=== PATIENT | female | born 1975 | race African-American/Black ===

== ENCOUNTER → 2017-03-11 | Outpatient (CLI) | payer OTHER ==
[~2017-03-11] VITALS: Ht 154.9 cm; Wt 57.3 kg
[~2017-03-11] MED LIST: APAP650 PO; BIRTH CONTROL; EXCEDRIN CAPLE1 EACH; ISOMETHEPT-CAF1 EACH PO; LYRICA 50 MG50 MG PO; LYRICA100 MG PO; NORCO 5-325 TA1 EACH PO; NORGESTIMATE-E1 EACH PO; RIZATRIPTAN10 MG PO; SPACERADULT; VENLAFAXIN75 MG/1 T2 PO
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
[2017-03-11 09:53] VITALS: BP 142/89
== END | disposition home or self-care (01) ==
LOC: PAIN 07:03
DX: G62.9 Polyneuropathy, unspecified (principal); G89.29 Other chronic pain; M25.571 Pain in right ankle and joints of right foot; M25.572 Pain in left ankle and joints of left foot; Z98.890 Other specified postprocedural states

== ENCOUNTER → 2018-07-21 | Outpatient (CLI) | payer OTHER ==
[~2018-07-21] VITALS: Ht 154.9 cm; Wt 55.2 kg
[~2018-07-21] MED LIST changes: +CLONAZEPAM 0.50.5 M1 PO; +NORTRIPTYLINE H10 M1 PO; +ZOLOFT25 MG PO
--- NOTE | ~2018-07-21 | HPC ---
[facility] [address] [place] [address] PAIN MANAGEMENT CONSULTATION Name: ROSARIO SOLORZANO Room #: REG CLEMENCIA JudyDerrickMervat#: [id number] Admission: 07/21/18 Attend Phys: Moustapha Qiu DO Discharge: Date of : 71 Report #: [id number] THIS REPORT FOR: //name// CC: Lauren Valencia DATE OF SERVICE: 07/21/2018 CHIEF COMPLAINT: Right medial foot pain. HISTORY OF PRESENT ILLNESS: As you know, the patient is a very pleasant 43-year-old female returning in followup visit with now complaining only of right medial foot pain directly over the great toe and medial aspect of the forefoot. The patient has palpatory tenderness over the area. At our last visit, the patient was placed on 50 mg of Lyrica in the morning, 100 mg at night with good and prolonged efficacy. She was denying any side effects to the medication. Apparently, adjustments have been made in her medication reducing her down to 25 mg of Lyrica twice a day, a subtherapeutic dose. Unfortunately, her symptoms have begun to return. She returns today to make adjustments in medication therapy and discuss ongoing right great toe and medial distal foot pain. The patient denies any specific injury or trauma or changes in her medical history other than the Lyrica reduction. ALLERGIES: No known drug allergies. CURRENT MEDICATIONS: Lyrica 25 mg twice a day, nortriptyline 100 mg once a day, sertraline 25 mg once a day, clonazepam 0.5 mg b.i.d. SOCIAL HISTORY: The patient denies tobacco, alcohol, IV or illicit drug use. She is working, not receiving workmen's compensation, unaccompanied today. IMAGING: No new imaging available. PHYSICAL EXAMINATION: VITAL SIGNS: Blood pressure 132/81, pulse 90, respiratory rate 18 and unlabored. The patient is 100% on room air. Height 5 feet 1 inch tall, weighs 121.6 pounds, BMI calculated 23. GENERAL: Well-developed, well-nourished, well-hydrated 43-year-old female appearing stated age, placing current pain score 7/10. HEENT: Normocephalic, atraumatic. Pupils equal, round, reactive to light. EXTREMITIES: Show no clubbing, no cyanosis, no edema. MUSCULOSKELETAL: The patient has some palpatory tenderness over the great toe joint. Deep palpation of the area causes intensification of pain. There does not appear to be any changes in skin color, texture, nail growth or hair growth concerning of CRPS. The toe appears normal in appearance, [place] [address] PAIN MANAGEMENT CONSULTATION Name: ROSARIO SOLORZANO [facility] Room #: REG CLEMENCIA Norton#: [id number] Admission: 07/21/18 Attend Phys: Moustapha Qiu DO Discharge: Date of : 71 Report #: [id number] palpatory tenderness over this joint specifically. The patient reports increasing pain with flexion and extension of the toe, both active and passively. Normal tactile sensation is noted. ASSESSMENT: 1. Right foot pain. 2. Right great toe pain. PLAN: 1. The patient is returning in followup visit reporting increasing pain with decreasing Lyrica therapy. Apparently, adjustments have been made in the Lyrica reducing her dose, which has led to recurrence of pain. Recommend reinitiating the Lyrica at prior dosing as her pain was well controlled. She was having no side effects to medication based on what the patient is telling us today. No side effects of somnolence, decreased mental acuity, disorientation, confusion or mental slowing. We would recommend reinitiating the Lyrica as this was beneficial at treating her symptoms in the past. We have provided the patient with a prescription of Lyrica 50 mg dose to be taken 1 tab in the morning, 2 tabs at night for a total of 150 mg per day, well below the maximum dose of Lyrica 600 mg in total. The patient reports that she was sleeping better with the medication. Pain was well controlled and her depression was better controlled. Recommend reinitiation of the therapy at previous dosing, which were effective. She was given samples of Lyrica today to initiate the titration. I recommend 50 mg b.i.d. initially. If pain is improved at this level, then continue that therapy; if not improved, then increase to the 50 mg morning and 100 mg at night. She was given samples of the medication to begin the titration and a prescription of the medication with 2 refills. 2. We will send the patient for x-ray imaging of the right foot. I am concerned that there might be a joint problem there at the great toe where it articulates with the metatarsals. We will have the patient undergo x-ray imaging and review the findings. The patient does have a history of gout for which her brother was just recently diagnosed. The patient does not appear to be partaking in substances that are known to cause precipitation of gout, though this does not preclude this from a possibility. We will be sending the patient off for x-ray imaging to determine if there are some arthritic changes in that joint as well. The patient can call for findings later today. 3. We will see the patient back in followup visit on an as needed basis. We have made adjustments in her medication today. She will contact our clinic with any questions or concerns. <ELECTRONICALLY SIGNED> By: Moustapha Qiu DO 07/21/18 1520 [id number] Moustapha Qiu DO /nt
[2018-07-21 08:59] VITALS: BP 132/81
== END ==
LOC: PAIN 05:45
DX: M79.671 Pain in right foot (principal); M79.672 Pain in left foot; Z79.899 Other long term (current) drug therapy

== ENCOUNTER → 2018-07-21 | Outpatient (CLI) | payer OTHER | LOC: RAD 09:43 | DX: M79.671 Pain in right foot (principal) ==